=== PATIENT | male | born 1975 | race Caucasian/White ===

== ENCOUNTER 2024-03-21 11:04 | Emergency (ER) | payer OTHER, SELFPAY ==
[2024-03-21 11:56] LABS: Absolute Eosinophils 0.1 K/uL (0-0.5); Absolute Lymphocytes (CBC) 0.9 K/uL (0.7-4.9); Absolute Monocytes 0.8 K/uL (0.1-1.3); Absolute Neutrophil 8.1 K/uL (1.8-8.0); Basophils % 0.3 % (0-1.3); Eosinophils % 0.6 % (0-4.4); Hematocrit 37.1 % (39.6-49.0); Hemoglobin 12.3 g/dL (13.6-17.9); Lymphocytes % 9.1 % (15.3-44.8); MCH 32.8 pg (27.0-35.0); MCHC 33.2 g/dL (32.0-36.0); MCV 98.9 fL (80-100); MPV 7.4 fL (7.6-11.3); Monocytes % 8.3 % (3.3-12.3); Neutrophils % 81.7 % (41.7-73.7); Nucleated Red Blood Cells % 0.1 % (0-0); Platelets 244 thou/uL (152-406); RBC Red Blood Cell Count 3.75 M/uL (4.33-5.43); Red Cell Distribution Width 14.4 % (12.1-15.2)
[2024-03-21 12:14] LABS: Albumin 2.7 g/dL (3.4-5.0); Albumin/Globulin Ratio 0.6 (1.1-1.8); Anion Gap 8.2 mEq/L (5.0-15.0); Bilirubin Total 0.5 mg/dL (0.2-1.0); Globulin 4.6 g/dL (2.3-3.5); Potassium 4.2 mEq/L (3.5-5.1); Protein, Total 7.3 g/dL (6.4-8.2)
--- NOTE | 2024-03-21 13:16 | ER ---
Nurse's Notes [facility] Name: Ward Booth Age: 48 yrs Sex: Male : 1975 Arrival Date: 03/21/2024 Time: 11:04 Bed 3 Private MD: Diagnosis: Other skin changes;Other urogenital candidiasis Presentation: 03/21 11:12 Chief complaint: Patient states: he has been constipated for a few days, followed by ap3 the observation of "gel-like blood" post bowel movement this morning. patient denies any abdominal pain, nausea or vomiting. Coronavirus screen: At this time, the client does not indicate any symptoms associated with coronavirus-19. Ebola Screen: No symptoms or risks identified at this time. Initial Sepsis Screen: Does the patient meet any 2 criteria? No. Patient's initial sepsis screen is negative. Does the patient have a suspected source of infection? No. Patient's initial sepsis screen is negative. Risk Assessment: Do you want to hurt yourself or someone else? Patient reports no desire to harm self or others. Onset of symptoms is unknown. 11:12 Method Of Arrival: EMS: [facility] ap3 11:12 Acuity: [place] 3 ap3 Triage Assessment: 16:22 General:. ld1 16:23 General: Appears in no apparent distress. comfortable, Behavior is calm, cooperative, ld1 appropriate for age. Pain: Denies pain. EENT: No signs and/or symptoms were reported regarding the EENT system. Neuro: Level of Consciousness is awake, alert, obeys commands, Oriented to person, place, time, situation. Cardiovascular: Capillary refill < 3 seconds Patient's skin is warm and dry. Respiratory: Airway is patent Respiratory effort is even, unlabored. GI: Abdomen is round non-distended, obese. : No signs and/or symptoms were reported regarding the genitourinary system. Derm: No signs and/or symptoms reported regarding the dermatologic system. Musculoskeletal: No signs and/or symptoms reported regarding the musculoskeletal system. Historical: - Allergies: 11:13 No Known Allergies; ap3 - Immunization history:: Adult Immunizations up to date. - Infectious Disease History:: Denies. - Social history:: Smoking status: Patient denies any tobacco usage or history of. Screenin:21 [facility] ED Fall Risk Assessment (Adult) History of falling in the last 3 months, ld1 including since admission No falls in past 3 months (0 pts) Confusion or Disorientation No (0 pts) Intoxicated or Sedated No (0 pts) Impaired Gait No (0 pts) Mobility Assist Device Used No (0 pt) Altered Elimination No (0 pt) Score/Fall Risk Level 0 - 2 = Low Risk Oriented to surroundings, Maintained a safe environment, Educated pt \\T\\ family on fall prevention, incl call for assistance when getting out of bed, Assessed \\T\\ reinforced patient's understanding of fall precautions, Provided non-skid footwear, Hourly rounding (assess needs \\T\\ fall precautionary measures) done, Used ambulatory aids as needed (educated on \\T\\ assisted with), Used gait belt as appropriate. Abuse screen: Denies threats or abuse. Denies injuries from another. Nutritional screening: No deficits noted. Tuberculosis screening: No symptoms or risk factors identified. Assessment: 12:45 Reassessment: Patient appears in no apparent distress at this time. Patient and/or iw family updated on plan of care and expected duration. Pain level reassessed. 13:50 Reassessment: Patient appears in no apparent distress at this time. Patient and/or ld1 family updated on plan of care and expected duration. Pain level reassessed. 14:00 Reassessment: Discharge pending transportation. jl7 15:00 Reassessment: Patient appears in no apparent distress at this time. Patient and/or ld1 family updated on plan of care and expected duration. Pain level reassessed. 16:24 Reassessment: Patient appears in no apparent distress at this time. No changes from ld1 previously documented assessment. Patient and/or family updated on plan of care and expected duration. Pain level reassessed. Vital Signs: 11:12 BP 129 / 42; Pulse 85; Resp 19; Temp 98.7; Pulse Ox 95% ; Weight 192.78 kg; ap3 11:41 BP 114 / 52; ec2 12:45 BP 106 / 58; Pulse 86; Resp 19; Pulse Ox 95% on R/A; iw 14:00 BP 118 / 61; Pulse 84; Resp 18; Pulse Ox 96% on R/A; ld1 16:25 BP 125 / 55; Pulse 81; Resp 18; Pulse Ox 95% on R/A; ld1 ED Course: 11:08 Patient arrived in ED. ec2 11:08 Nelson Varela MD is Attending Physician. ec2 11:12 Patient has correct armband on for positive identification. Bed in low position. Call ap3 light in reach. Side rails up X2. Provided Education on: call light education. 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 Pulse ox on. NIBP on. 11:13 Triage completed. ap3 11:14 Arm band placed on right wrist. ap3 11:53 Yen Ford, RN is Primary Nurse. iw 11:53 Initial lab(s) drawn, by me, sent to lab. Inserted saline lock: 22 gauge in right iw antecubital area, using aseptic technique. Blood collected. 16:21 Door closed. Noise minimized. ld1 16:21 No provider procedures requiring assistance completed. IV discontinued, intact, ld1 bleeding controlled, No redness/swelling at site. Administered Medications: No medications were administered Medication: 16:26 VIS not applicable for this client. ld1 Outcome: 13:15 Discharge ordered by . ec2 16:26 Discharged to home via wheelchair, with family, ld1 16:26 Condition: stable 16:26 Discharge instructions given to patient, family, Instructed on discharge instructions, follow up and referral plans. Demonstrated understanding of instructions, follow-up care, 16:26 Patient left the ED. ld1 Signatures: Yen Ford, ISABELLA MASON iw Regis Mckeon RN RN jl7 Sonya Ngo RN RN ap3 Mirian Valverde RN RN ld1 Nelson Varela MD MD ec2
--- NOTE | 2024-03-21 13:16 | EDPHYS ---
Physician Documentation [facility] Name: Ward Booth Age: 48 yrs Sex: Male : 1975 Arrival Date: 03/21/2024 Time: 11:04 Bed 3 Private MD: ED Physician Nelson Varela HPI: 03/21 11:09 This 48 yrs old Male presents to ER via Unassigned with complaints of concern ec2 for bleeding. 11:09 Patient arrives today for evaluation of bleeding. States that he was using the ec2 bathroom, subsequently noted blood in the toilet bowl. Patient reports that he has been constipated recently, states that he took Dulcolax, had a bowel movement this morning. Patient reports no fevers or chills, no nausea or vomiting. Also complains of chronic abdominal pain which is unchanged today. Reports tolerating p.o. without issue. Historical: - Allergies: 11:13 No Known Allergies; ap3 - Immunization history:: Adult Immunizations up to date. - Infectious Disease History:: Denies. - Social history:: Smoking status: Patient denies any tobacco usage or history of. ROS: 11:09 Constitutional: as per hpi ec2 Exam: 11:09 Constitutional: GEN: NAD Head: atraumatic Eyes: EOMI Ears: External ears are ec2 normal. CV: regular rate LUNGS: no respiratory distress ABD: Morbidly obese abdomen, nontender, not guarding, not rigid. : Performed under supervision, no hemorrhoids appreciated, no bright red blood per rectum noted. No tenderness on rectal examination. SKIN: Significant skin breakdown noted due to patient's body habitus, fungal rash noted to the lower abdomen, pannus, suprapubic region. MSK: no evidence of trauma NEURO: moves all extremities equally Vital Signs: 11:12 BP 129 / 42; Pulse 85; Resp 19; Temp 98.7; Pulse Ox 95% ; Weight 192.78 kg; ap3 11:41 BP 114 / 52; ec2 12:45 BP 106 / 58; Pulse 86; Resp 19; Pulse Ox 95% on R/A; iw 14:00 BP 118 / 61; Pulse 84; Resp 18; Pulse Ox 96% on R/A; ld1 16:25 BP 125 / 55; Pulse 81; Resp 18; Pulse Ox 95% on R/A; ld1 MDM: 11:08 Patient medically screened. ec2 11:09 Data reviewed: vital signs. ED course: Patient arrives today due to concern for blood ec2 in the stool. Examination remarkable for abdominal and findings as noted above. Will obtain lab work to evaluate for signs of anemia. Will also investigate for liver abnormalities. Consider process such as hemorrhoids, diverticulosis, diverticulitis, anemia.. 12:22 ED course: CBC without significant anemia, metabolic profile shows some renal ec2 dysfunction with creatinine 1.36 and a GFR 63. . 13:14 ED course: On reassessment patient is well-appearing in no acute distress. Ultimately ec2 patient has multiple longstanding issues including patient's morbid obesity, significant skin breakdown, is always best suited by patient following with a primary care doctor. I did not see any rectal bleeding on my digital rectal examination, I did recommend he follow-up with the GI doctor however patient does have skin breakdown in his lower pannus which has some slight bleeding to the area, does not appear gangrenous, will start the patient on nystatin powder. Patient does have significant barriers to healthcare including social economic status, medical understanding as well as patient's body habitus. Patient to follow-up outpatient. Return precautions given.. 03/21 11:08 Order name: CBC with Diff; Complete Time: 12:21 ec2 03/21 11:08 Order name: CMP; Complete Time: 12:21 ec2 03/21 11:08 Order name: IV Saline Lock; Complete Time: 11:53 ec2 03/21 11:08 Order name: Labs collected and sent; Complete Time: 11:53 ec2 Administered Medications: No medications were administered Disposition Summary: 03/21/24 13:15 Discharge Ordered Notes: Location: Home ec2 Condition: Stable ec2 Diagnosis - Other skin changes ec2 - Other urogenital candidiasis ec2 Followup: ec2 - With: Private Physician - When: - Reason: Re-evaluation by your physician Discharge Instructions: - Discharge Summary Sheet ec2 - Skin Yeast Infection ec2 Forms: - Medication Reconciliation Form ec2 - Antibiotic Education ec2 - Prescription Opioid Use ec2 - Patient Portal Instructions ec2 - Leadership Thank You Letter ec2 Prescriptions: - nystatin 100,000 unit/gram Topical powder - apply 1 application TOPICAL route 3 times per day for 14 days; 1 unit; Refills: ec2 0, Product Selection Permitted - Lactulose 10 gram/15 mL Oral Solution - take 30 milliliters ORAL route once daily; 300 milliliter; Refills: 0, Product ec2 Selection Permitted - methocarbamol 500 mg Oral tablet - take 2 tablets ORAL route 4 times per day; 30 tablet; Refills: 0, Product ec2 Selection Permitted Signatures: Dispatcher [employer] Sonya Hatfield RN RN ap3 Mirian Valverde RN RN ld1 Nelson Varela MD MD ec2 Corrections: (The following items were deleted from the chart) 11: 11:09 CBC+H.LAB.BRZ ordered. EDMS EDMS 11: 11:09 COMPREHENSIVE METABOLIC PANEL+C.LAB.BRZ ordered. EDMS EDMS 11:11 11:09 Constitutional: GEN: NAD Head: atraumatic Eyes: EOMI Ears: External ears are ec2 normal. CV: regular rate LUNGS: no respiratory distress ABD: Morbidly obese abdomen, nontender, not guarding, not rigid. : Performed under supervision, no hemorrhoids appreciated, no bright red blood per rectum noted. No tenderness on rectal examination. SKIN: no evidence of rashes MSK: no evidence of trauma NEURO: moves all extremities equally ec2
[2024-03-21 16:47] VITALS: BP 125/55; TEMP 98.7; O2SAT 95
== END 2024-03-21 16:26 | disposition home or self-care (01) ==
LOC: ER 11:04
DX: R23.8 Other skin changes (principal); B37.49 Other urogenital candidiasis
CPT/HCPCS: 36415; 80053; 85025